=== PATIENT | male | born 1975 | race Caucasian/White ===

== ENCOUNTER 2016-05-14 09:46 | Emergency (ER) | payer SELFPAY ==
[2016-05-14 10:16] VITALS: BP 134/80
--- NOTE | 2016-05-14 13:02 | UC ---
Harvinder Epstein Matthew, scribed for Christa Blackburn DO on 05/14/16 at 1055 . Abdominal Pain Male HPI - HPI Summary HPI Summary: A 40 y/o male presents to [facility] with rapidly worsening, constant, RUQ abdominal pain since this morning. The pain is described 10/10 in severity and does not radiate. The pain awoke the patient before his alarm this morning and has been progressively worsening. The abdominal pain is worse with ambulation, deep breaths, bumps in the road, touch, and movement. Nothing makes the pain better, though pt continue to shift trying to ease pain. He denies fever, chills, chest pain, SOB, nausea, vomiting, diarrhea, dysuria, urinary symptoms, and back pain. The patient drinks 2-3 times per week, and a 12 pack on Fridays. The patient ate pulled pork yesterday. Later after nursing noted evidence of IV drug use when inserting IV, pt admitted to IV drug use. - History of Current Complaint Chief Complaint: UCAbdominalPain Stated Complaint: ABDOMINAL PAIN Time Seen by Provider: 05/14/16 10:34 Hx Obtained From: Patient Onset/Duration: Sudden Onset - rapidly worsening, Lasting Hours, Still Present Timing: Constant Severity Initially: Moderate Severity Currently: Moderate Pain Intensity: 10 Pain Scale Used: 0-10 Numeric Location: Discrete At: RUQ, Epigastric Radiates: No Character: Aching, Dull, Sharp Aggravating Factor(s):: Movement, Deep Breaths Alleviating Factor(s): Nothing Associated Signs And Symptoms: Positive: Decreased Appetite. Negative: Fever, Chest Pain, Back Pain, Urinary Symptoms, Nausea, Vomiting, Diarrhea - Allergies/Home Medications Allergies/Adverse Reactions: Allergies Allergy/AdvReac Type Severity Reaction Status Date / Time No Known Allergies Allergy Verified 10/13/14 12:17 Home Medications: Home Medications NK [No Home Medications Reported] 05/14/16 [History Confirmed 05/14/16] PMH/Surg Hx/FS Hx/Imm Hx Previously Healthy: Yes - Surgical History Surgical History: Unable to Obtain/Confirm - Family History Known Family History: Positive: Diabetes Negative: Cardiac Disease, Hypertension - Social History Occupation: Employed Full-time Alcohol Use: Daily Substance Use Type: Cocaine Substance Use Comment - Amount & Last Used: cocaine in the past Smoking Status (MU): Heavy Every Day Tobacco Smoker Type: Cigarettes Household Exposure Type: Cigarettes Cessation Counseling: Patient Advised to Stop Review of Systems Constitutional: Negative Skin: Negative Eyes: Negative ENT: Negative, Dental Pain Cardiovascular: Negative Gastrointestinal: Abdominal Pain - RUQ abdominal pain Genitourinary: Negative Motor: Negative Neurovascular: Negative Musculoskeletal: Negative Neurological: Negative Psychological: Negative All Other Systems Reviewed And Are Negative: Yes Physical Exam Triage Information Reviewed: Yes Appearance: Well-Nourished, Pain Distress - moderate Vital Signs: Initial Vital Signs Temp 98.0 F 05/14/16 10:12 Pulse 76 05/14/16 10:12 Resp 18 05/14/16 10:12 BP 134/80 05/14/16 10:12 Pulse Ox 99 05/14/16 10:12 Vital Signs Reviewed: Yes Eyes: Positive: Conjunctiva Clear. Negative: Discharge ENT: Positive: Hearing grossly normal. Negative: Muffled/hoarse voice Dental Exam: Other - Poor dentition Neck: Positive: Supple, Nontender Respiratory: Positive: Lungs clear, Normal breath sounds, No respiratory distress, No accessory muscle use, Other: - Shallow Breathing Cardiovascular: Positive: RRR, No Murmur Abdomen Description: Positive: Soft, Other: - RUQ and epigastric tenderness. Negative: CVA Tenderness (R), CVA Tenderness (L), Distended, Guarding Bowel Sounds: Positive: Present Musculoskeletal Exam: Normal Neurological: Positive: Alert, Muscle Tone Normal Psychological Exam: Normal Psychological: Positive: Age Appropriate Behavior Skin Exam: Normal Skin: Positive: Other - warm, dry, normal color Abd Pain Male Course/Dx - Differential Dx/Clinical Impression Differential Diagnosis/HQI/PQRI: Gall Bladder Disease, Hepatitis, Pancreatitis Provider Diagnoses: RUQ pain of unknown etiology - Physician Notification/Consults Discussed Patient Care With: Dr. Clayton (ED) at 10:56 -- Notified of patient' s history and will accept the transfer of the patient. Discharge - Discharge Plan Condition: Stable Disposition: TRANS [facility] Discharge Disposition Comment: The patient needs further work-up and mangement in the ED. Referrals: No Primary Care Phys,NOPCP [Primary Care Provider] - The documentation as recorded by the Harvinder harding Matthew accurately reflects the service I personally performed and the decisions made by , Christa Blackburn DO.
== END 2016-05-14 11:31 | disposition short-term general hospital (02) ==
LOC: UCEAST 09:46
DX: R10.11 Right upper quadrant pain (principal); F17.210 Nicotine dependence, cigarettes, uncomplicated; F19.10 Other psychoactive substance abuse, uncomplicated

== ENCOUNTER 2016-05-14 11:48 | Emergency (ER) | payer SELFPAY ==
[2016-05-14] MEDS ORDERED: Pantoprazole IV* 40 MG IV ONE (12:46)
[2016-05-14] MEDS ORDERED: Morphine INJ* 4 MG/ML 1 ML CARPUJECT IV ONE ×2 (12:46→14:51)
[2016-05-14] MEDS ORDERED: Ondansetron INJ* 2 MG/ML VIAL IV ONE (12:46)
[2016-05-14] MEDS ORDERED: NS 0.9% 1000 ML* 2,000 ML IV ONE (12:47)
[2016-05-14 12:51] LABS: Hematocrit 48 % (42-52); Hemoglobin 15.8 g/dl (14.0-18.0); Mean Corpuscular HGB Conc 33 g/dl (31-36); Mean Corpuscular Hemoglobin 30 pg (27-31); Mean Corpuscular Volume 91 fL (80-94); Mean Platelet Volume 11 um3 (7.4-10.4); Red Blood Count 5.32 10^6/ul (4.0-5.4); Red Cell Distribution Width 14 % (10.5-15); White Blood Count 9.5 10^3/ul (3.5-10.8)
--- NOTE | 2016-05-14 13:02 | ED ---
Abdominal Pain/Male - HPI Summary HPI Summary: 40 year old male presents to ER after being seen at [facility] this morning for RUQ abdominal pain. Patient states the pain started this morning and woke him up from his sleep. He describes the pain to be like "a bat getting pushed up into his ribs", sharp/stabbing, constant pain. He says the pain has progressively gotten worse since waking up and rates the severity a 8/ 10. He has never had pain like this before however he does remember last week experiencing some mild pain in his RUQ that lasted a few minutes and dissipated. He has not tried taking anything for this pain. He can not seem to find a comfortable position and deep breaths and car ride bumps make the pain intensity worse. He does admit to the pain causing him to feel SOB. Complains of some radiation to his back. He can not relate the pain to eating or drinking. He has not eaten anything today. He has been experiencing a loss of appetite. LBM was yesterday and stated to be normal in appearance. Denies fever/ chills, diaphoresis, dysuria, hematuria, melena, nausea, vomiting, chest pain, diarrhea, constipation and leg edema. PMHx includes EtOH and cocaine abuse. Has not used cocaine in past 24 hours. Had 2 alcoholic drinks last night during dinner. Pt denies any other PMHx or any prior abd issues/surgeries. - History of Current Complaint Chief Complaint: EDAbdPain Stated Complaint: ABD PAIN Time Seen by Provider: 05/14/16 12:20 Hx Obtained From: Patient Onset/Duration: Sudden Onset - woke him up this morning around 5am, it has been progessively getting worse, Worse Since Timing: Constant Severity Initially: Mild Severity Currently: Moderate Pain Intensity: 8 Pain Scale Used: 0-10 Numeric Location: Discrete At: RUQ, Epigastric Radiates to: Back Character: Sharp Aggravating Factor(s): Movement, Deep Breaths, Other: - car ride/bumps, palpation Alleviating Factor(s): Nothing Associated Signs And Symptoms: Positive: Decreased Appetite. Negative: Diaphoresis, Fever, Cough, Chest Pain, Constipation, Blood in Stool, Urinary Symptoms, Nausea, Vomiting, Diarrhea - Allergies/Home Medications Allergies/Adverse Reactions: Allergies Allergy/AdvReac Type Severity Reaction Status Date / Time No Known Allergies Allergy Verified 10/13/14 12:17 PMH/Surg Hx/FS Hx/Imm Hx Previously Healthy: Yes Endocrine/Hematology History: Denies: Hx Diabetes, Hx Thyroid Disease, Hx Anemia Cardiovascular History: Denies: Hx Angina, Hx Atrial Fibrillation, Hx Congestive Heart Failure, Hx Deep Vein Thrombosis, Hx Hypertension Respiratory History: Denies: Hx Asthma, Hx Chronic Obstructive Pulmonary Disease (COPD) GI History: Denies: Hx Crohn's Disease, Hx Diverticulosis, Hx Gall Bladder Disease, Hx Gastroesophageal Reflux Disease History: Denies: Hx Kidney Stones Psychiatric History: Reports: Hx Substance Abuse Denies: Hx Eating Disorder, Hx of Violent Episodes Against Others Infectious Disease History: No Infectious Disease History: Denies: Traveled Outside the [place] in Last 30 Days - Family History Known Family History: Positive: None - Social History Alcohol Use: Weekly Alcohol Amount: 3X WEEK Substance Use Type: Reports: Cocaine Substance Use Comment - Amount & Last Used: 1 WEEK AGO Smoking Status (MU): Heavy Every Day Tobacco Smoker Type: Cigarettes Review of Systems Negative: Fever, Chills, Fatigue, Skin Diaphoresis Eyes: Negative ENT: Negative Cardiovascular: Negative Positive: Shortness Of Breath - upon deep breaths due to the abdominal pain Positive: Abdominal Pain. Negative: Vomiting, Diarrhea, Nausea Genitourinary: Negative Musculoskeletal: Negative Skin: Negative Neurological: Negative Psychological: Normal All Other Systems Reviewed And Are Negative: Yes Physical Exam Triage Information Reviewed: Yes Vital Signs On Initial Exam: Initial Vitals Temp Pulse Resp BP Pulse Ox 98.7 F 65 17 148/86 99 05/14/16 11:57 05/14/16 11:57 05/14/16 11:57 05/14/16 11:57 05/14/16 11:57 slightly elevated blood pressure Vital Signs Reviewed: Yes Appearance: Positive: Well-Appearing, Well-Nourished, Pain Distress - mild Skin: Positive: Warm, Skin Color Reflects Adequate Perfusion Head/Face: Positive: Normal Head/Face Inspection Eyes: Positive: Normal ENT: Positive: Normal ENT inspection, Hearing grossly normal, Pharynx normal, TMs normal Neck: Positive: Supple, Nontender, No Lymphadenopathy Respiratory/Lung Sounds: Positive: Clear to Auscultation, Breath Sounds Present Cardiovascular: Positive: Normal, RRR, Pulses are Symmetrical in both Upper and Lower Extremities Abdomen Description: Positive: No Organomegaly, Soft, CVA Tenderness (R) - mild tenderness on right flank, Guarding - + savage's sign, Other: - moderate tenderness on palpation of RUQ, epigastric area. mild tenderness to LUQ and RLQ upon palpation.. Negative: Distended, Peritoneal Signs, Splenomegaly Bowel Sounds: Positive: Present Male Genital Exam: Positive: normal genitalia Musculoskeletal: Positive: Normal Neurological: Positive: Normal, Sensory/Motor Intact, Alert, Oriented to Person Place, Time Psychiatric: Positive: Normal, Affect/Mood Appropriate Diagnostics - Vital Signs Vital Signs Temp Pulse Resp BP Pulse Ox 05/14/16 11:57 98.7 F 65 17 148/86 99 - Laboratory Result Diagrams: 05/14/16 11:06 05/14/16 11:06 Lab Statement: Any lab studies that have been ordered have been reviewed, and results considered in the medical decision making process. - Radiology No standard instances Xray Interpretation: No Acute Changes - No radiographic evidence of acute cardiopulmonary disease. Radiology Interpretation Completed By: Radiologist - CT No standard instances CT Interpretation: Positive (See Comments) - DISTENDED GALLBLADDER WITH GALLSTONES. PANCREAS IS PROMINENT IN SIZE. NORMAL APPENDIX. SMALL INGUINAL LYMPH NODES ARE NOTED. NONOBSTRUCTING CALCULI LOWER POLE RIGHT KIDNEY. CT Interpretation Completed By: Radiologist - Ultrasound No standard instances Ultrasound Interpretation: Positive (See Comments) Ultrasound Interpretation Completed By: Radiologist - 1. CHOLELITHIASIS WITHOUT SPECIFIC EVIDENCE FOR ACUTE CHOLECYSTITIS. 2. FOCAL HYPERECHOIC LESION IN THE MEDIAL SEGMENT OF THE LEFT HEPATIC LOBE SUGGESTIVE OF FATTY INFILTRATION ALTHOUGH NONSPECIFIC. THIS COULD BE FURTHER EVALUATED WITH A MRI OF THE ABDOMEN WITHOUT AND WITH CONTRAST. Re-Evaluation - Re-Evaluation First Eval Re-Evaluation Time: 14:18 Change: Improved - still states he is in some pain after 4mg morphine however it has decreased some Second Eval Re-Evaluation Time: 17:05 Change: Unchanged - still in pain, was given more pain medication Abdominal Pain Fem Course/Dx - Course Course Of Treatment: Patient will be worked up to rule out pancreatitis, cholecystitis, cholelithiasis, hepatitis, gastric ulcers, appendicitis, nephrolithiasis constipation. CBC, CMP, Amylase, Lipase, INR, UA ordered. Fluids , pain management, zofran and protonix given. An US gallbladder, CT w/ contrast abd/pelvis, and chest x-ray was ordered. All bloodwork was negative, UA negative. chest x-ray negative. US/CT showed presence of gallstones. Patient was given pain medication and instructed to stay away from alcohol and fried, fatty foods. He was also told to follow up with surgeon. Sent home with pain medication and zofran for nausea. - Diagnoses Differential Diagnosis/HQI/PQRI: Appendicitis, Constipation, Gall Bladder Disease, Hepatitis, Pancreatitis, Peptic Ulcer Disease, Ureteral Stone, Urinary Tract Infection Provider Diagnoses: Cholelithiasis - Provider Notifications Discussed Care Of Patient With: Discussed with and evaluated by Dr Rosales. Discharge - Discharge Plan Condition: Good Disposition: HOME Prescriptions: HYDROcodone/ACETAMIN 5-325 MG* [[place] 5-325 TAB*] 1 tab PO Q6H PRN #20 tab MDD 4 PRN Reason: Pain Ondansetron TAB* [Zofran Tab*] 4 mg PO Q6H PRN #14 tab PRN Reason: Nausea Patient Education Materials: Hydrocodone/Acetaminophen (By mouth), Biliary Colic (ED), Gallstones (ED) Referrals: Markie Zamarripa MD [Medical Doctor] - No Primary Care Phys,NOPCP [Primary Care Provider] - Additional Instructions: Take medication as prescribed for pain and nausea. Follow-up with a PCP and general surgeon for further evaluation for your gallstones. Stay away from fried , fatty foods. Stick to a bland diet. If you start having fever/chills, increasing pain or symptoms do not improve please seek medical attention promptly.
[2016-05-14 13:03] LABS: Albumin 4.5 g/dL (3.2-5.2); C Reactive Protein 16.42 mg/L (< 5.00); Calcium 10.3 mg/dL (8.6-10.3); EGFR African American 114.9 (>60); EGFR Non-African American 89.3 (>60); Globulin 3.2 g/dL (2-4); Potassium 4.2 mmol/L (3.5-5.0); Total Bilirubin 0.4 mg/dL (0.2-1.0); Total Protein 7.7 g/dL (6.4-8.9)
[2016-05-14] MEDS ORDERED: Ondansetron INJ* 2 MG/ML VIAL ONE (13:34)
--- NOTE | 2016-05-14 13:55 | RAD ---
INDICATION: Right upper quadrant pain. COMPARISON: There are no prior studies available for comparison. TECHNIQUE: Multiple real-time images of the right upper quadrant were obtained. FINDINGS: There are gallstones and sludge present. No gallbladder wall thickening or pericholecystic fluid is seen. No intra or extrahepatic ductal distention is present. The common bile duct measured 0.4 cm in diameter. The liver is mildly enlarged. There is a focal hyperechoic area present in the anterior portion of the medial segment of the left hepatic lobe which is a nonspecific finding although likely representing focal fatty infiltration. This area measures 2.5 x 1.6 cm in size. The pancreas is partially inferior by overlying bowel gas. No pancreatic ductal distention is seen. The right kidney is normal in size without evidence for hydronephrosis. IMPRESSION: 1. CHOLELITHIASIS WITHOUT SPECIFIC EVIDENCE FOR ACUTE CHOLECYSTITIS. 2. FOCAL HYPERECHOIC LESION IN THE MEDIAL SEGMENT OF THE LEFT HEPATIC LOBE SUGGESTIVE OF FATTY INFILTRATION ALTHOUGH NONSPECIFIC. THIS COULD BE FURTHER EVALUATED WITH A MRI OF THE ABDOMEN WITHOUT AND WITH CONTRAST.
--- NOTE | 2016-05-14 14:11 | RAD ---
INDICATION: Right upper quadrant and rib pain COMPARISON: Similar chest x-ray dated October 05, 2014 TECHNIQUE: PA and lateral views of the chest were obtained. FINDINGS: The heart and mediastinum are normal in size and contour. The lungs are grossly clear. There is no evidence of large pleural effusion. Visualized bones are normal for the patient's age. There is no radiographic evidence of free air beneath the diaphragm IMPRESSION: No radiographic evidence of acute cardiopulmonary disease.
[2016-05-14 14:18] LABS: Urine Bilirubin Negative (Negative); Urine Glucose Negative (Negative); Urine Nitrite Negative (Negative)
[2016-05-14] MEDS ORDERED: Iohexol 300* (CONTRAST) 10 ML SDV IV ONE (14:51)
--- NOTE | 2016-05-14 16:37 | RAD ---
Indication: Pancreatitis, appendicitis. CT of the abdomen and pelvis was performed after oral and IV contrast administration. Coronal and sagittal reconstructed images were obtained. Administered 115.0 ml of OMNIPAQUE 300 mgi/ml was given according to hospital protocol. Lung bases demonstrate no pleural fluid, nodules or masses. Heart is of normal size without evidence of pericardial effusion. The liver is normal in size. No focal lesions or intrahepatic ductal dilatation is noted. Area of typical focal fatty infiltration in the anterior medial segment of left lobe of liver. The gallbladder is distended. High density material in the dependent portion consistent with gallstones are noted. There may be some minimal wall thickening noted. Pancreas is prominent in size however no peripancreatic infiltration of fat is noted. The spleen is normal in size. No adrenal lesions are noted. The kidneys demonstrate symmetric nephrograms without hydronephrosis. There may be tiny nonobstructing calculi in the lower pole of the right kidney. No retroperitoneal adenopathy is noted. No dilated loops of bowel are noted. CT of the pelvis demonstrates no retroperitoneal or pelvic lymphadenopathy. Urinary bladder is unremarkable. No hernias are noted. The colon is filled with stool. The appendix is otherwise unremarkable. Small inguinal lymph nodes are noted. No pelvic adenopathy is noted. IMPRESSION: DISTENDED GALLBLADDER WITH GALLSTONES. PANCREAS IS PROMINENT IN SIZE. NORMAL APPENDIX. SMALL INGUINAL LYMPH NODES ARE NOTED. NONOBSTRUCTING CALCULI LOWER POLE RIGHT KIDNEY.
[2016-05-14] MEDS ORDERED: HYDROcodone/ACETAMIN 5-325 MG* 1 TAB PO ONE (17:11)
--- NOTE | 2016-05-14 17:21 | ED ---
I, Oh,Felipeedy, scribed for Alexandre Rosales MD on 05/14/16 at 1240 . Progress - Progress Note Progress Note: This 40 y/o male presents to ED for acute, sharp RUQ pain that woke him up this morning. Pain has been constant since the onset, and is worse with "car ride and bumps" and deep breaths. Pain radiates to back. Pt denies any fever, chills , diaphoresis, calf pain/swelling, or dysuria. PMHx includes EtOH and cocaine abuse. Pt denies any other PMHx or any prior abd issues. Pt consumed pull pork and potato last night, but did not eat anything for breakfast. Per EMR, FHx is positive for EtOH abuse. - Results/Orders Results/Orders: CXR -- no acute dz. US Gallbladder -- 1. CHOLELITHIASIS WITHOUT SPECIFIC EVIDENCE FOR ACUTE CHOLECYSTITIS. 2. FOCAL HYPERECHOIC LESION IN THE MEDIAL SEGMENT OF THE LEFT HEPATIC LOBE SUGGESTIVE OF FATTY INFILTRATION ALTHOUGH NONSPECIFIC. THIS COULD BE FURTHER EVALUATED WITH A MRI OF THE ABDOMEN WITHOUT AND WITH CONTRAST. CT Ab/P -- DISTENDED GALLBLADDER WITH GALLSTONES. PANCREAS IS PROMINENT IN SIZE. NORMAL APPENDIX. SMALL INGUINAL LYMPH NODES ARE NOTED. NONOBSTRUCTING CALCULI LOWER POLE RIGHT KIDNEY. Physical Exam - Summary Physical Exam Summary: The patient is well-nourished in mild distress. The skin is warm and dry and skin color reflects adequate perfusion. HEENT: The head is normocephalic and atraumatic. The pupils are equal and reactive. The conjunctivae are clear and without drainage. Nares are patent and without drainage. Mouth reveals moist mucous membranes and the throat is without erythema and exudate. Neck is supple with full range of motion and non-tender. There are no carotid bruits. There is no neck vein distension. Respiratory: Chest is non-tender. Lungs are clear to auscultation and breath sounds are symmetrical and equal. Cardiovascular: Hear is regular rate and rhythm. There is no murmur or rub auscultated. There is no peripheral edema and pulses are symmetrical and equal. Abdomen: Questionable LUQ tenderness. Tenderness at RUQ, epigastrium and possibly RLQ. There are good bowel sounds heard in all four quadrants and there is no organomegaly palpated. Musculoskeletal: There is no back pain noted. Extremities are non-tender with full range of motion. There is good capillary refill. There is no peripheral edema or calf tenderness elicited. Percurssion tenderness at right lower back. Neurological: Patient is alert and oriented to person, place and time. Psychiatric: The patient has an appropriate affect and does not exhibit any anxiety or depression. Triage Information Reviewed: Yes Vital Signs On Initial Exam: Initial Vitals Temp Pulse Resp BP Pulse Ox 98.7 F 65 17 148/86 99 05/14/16 11:57 05/14/16 11:57 05/14/16 11:57 05/14/16 11:57 05/14/16 11:57 Vital Signs Reviewed: Yes Re-Evaluation - Re-Evaluation First Eval Re-Evaluation Time: 14:18 Change: Improved - still states he is in some pain after 4mg morphine however it has decreased some Second Eval Re-Evaluation Time: 17:05 Change: Unchanged - still in pain, was given more pain medication Course/Dx - Course Course Of Treatment: This 40 y/o male pt presents to ED with chief complaint of acute RUQ pain since yesterday. US Gallbladder and CT Ab/P indicated gallbladder distended with gallstone without sign of cholecystitis. Blood work indicates that WBC is wnl, but CRP is slightly elevated to 16.42. Pt presents to ED for Pt will be discharged with rx for narcotic pain medicine. Pt is to f/ u as an outpatient with surgery. - Diagnoses Provider Diagnoses: Cholelithiasis The documentation as recorded by the Maximilian harding Soohyun accurately reflects the service I personally performed and the decisions made by , Alexandre Rosales MD.
[2016-05-14 17:40] VITALS: BP 151/100
== END 2016-05-14 17:45 | disposition home or self-care (01) ==
LOC: ED 11:48
DX: K80.20 Calculus of gallbladder without cholecystitis without obstruction (principal); R10.11 Right upper quadrant pain; R06.02 Shortness of breath
CPT/HCPCS: 36415; 71020; 74177; 76705; 80053; 81003; 82150; 83605; 83690; 85025; 85610; 86140; 96374; 96375; 96376; 99284; J2270; J2405; Q9967